=== PATIENT | female | born 1975 | race Caucasian/White ===

== ENCOUNTER 2020-01-15 07:40 | Observation (INO) | payer MEDICARE, MEDICAID ==
--- NOTE | 2020-01-10 11:07 | RADIOLOGY REPORT (SQ) ---
EXAM DESCRIPTION: CHEST PA/LATERAL IMAGES COMPLETED DATE/TIME: 01/10/2020 10:22 am REASON FOR STUDY: PRE-OP COMPARISON: None. EXAM PARAMETERS: NUMBER OF VIEWS: two views TECHNIQUE: Digital Frontal and Lateral radiographic views of the chest acquired. RADIATION DOSE: NA LIMITATIONS: none FINDINGS: LUNGS AND PLEURA: Mild chronic interstitial changes. No acute infiltrate or effusion. No mass. MEDIASTINUM AND HILAR STRUCTURES: No masses or contour abnormalities. HEART AND VASCULAR STRUCTURES: Heart normal size. No evidence for failure. BONES: No acute findings. HARDWARE: None in the chest. OTHER: No other significant finding. IMPRESSION: Very mild chronic lung changes with no acute cardiopulmonary findings. TECHNICAL DOCUMENTATION: JOB ID: [id number] 2010 [employer]- All Rights Reserved Reading location - IP/workstation name: [email or web address]
[2020-01-10 11:40] LABS: ABSOLUTE EOSINOPHILS # (AUTO) 0.1 10^3/uL (0.0-0.6); ABSOLUTE LYMPHOCYTES (AUTO) 1.9 10^3/uL (0.5-4.7); ABSOLUTE MONOCYTES (AUTO) 0.3 10^3/uL (0.1-1.4); ABSOLUTE NEUT (AUTO) 2.8 10^3/uL (1.7-8.2); BASOPHILS % (AUTO) 0.5 % (0-2); EOSINOPHILS % (AUTO) 2.5 % (0-6); HEMATOCRIT 43.4 % (36.0-47.0); HEMOGLOBIN 15.3 g/dL (12.0-15.5); LYMPHOCYTES % (AUTO) 36.3 % (13-45); MEAN CORPUSCULAR HGB CONC 35.2 g/dL (32.0-36.0); MEAN CORPUSCULAR VOLUME 91 fl (80-97); MONOCYTES % (AUTO) 6.3 % (3-13); PLATELET COUNT 171 10^3/uL (150-450); RED BLOOD COUNT 4.77 10^6/uL (3.72-5.28); RED CELL DISTRIBUTION WIDTH 13.2 % (11.5-14.0); SEGMENTED NEUTROPHILS % (AUTO) 54.4 % (42-78); TOTAL CELLS COUNTED % (AUTO) 100 %; WHITE BLOOD COUNT 5.2 10^3/uL (4.0-10.5)
[2020-01-10 12:05] LABS: ANION GAP 6 (5-19); BLOOD UREA NITROGEN 12 mg/dL (7-20); CALCIUM 9.2 mg/dL (8.4-10.2); CARBON DIOXIDE 31 mmol/L (22-30); CHLORIDE 103 mmol/L (98-107); POTASSIUM 4.9 mmol/L (3.6-5.0)
[2020-01-10 12:10] LABS: GLUCOSE 51 mg/dL (75-110)
[~2020-01-15 07:40] MED LIST: CEFAZOLIN 1 GM/D5W RTU 1 GM/50 ML RTUPB IV ONE; CEFAZOLIN 1 GM/D5W RTU 1 GM/50 ML RTUPB IV PRN; FENTANYL CITRATE INJ/PF 100 MCG/2 ML AMPUL ONE; KETAMINE HCL INJ 500 MG/10 ML VIAL ONE; LACTATED RINGERS 1000 ML IV PRN; LIDOCAINE 0.5% INJ-PF (5 MG/ML) 50 ML SDV ONE; LIDOCAINE 0.5% INJ-PF (5 MG/ML) 50 ML SDV SUBCUT PRN; MIDAZOLAM 2 MG/2 ML INJ ONE; ONDANSETRON HCL INJ/PF 4 MG/2 ML SDV ONE; PROPOFOL INJ 200 MG/20 ML VIAL IV ONE
[2020-01-15 08:13] LABS: INTERNATIONAL RATION (INR) 0.97; PROTHROMBIN TIME 13.1 SEC (11.4-15.4)
[2020-01-15 08:14] LABS: PARTIAL THROMBOPLASTIN TIME 31.6 SEC (23.5-35.8)
[2020-01-15] MEDS ORDERED: SODIUM BICARBONATE 4.2% INJ (2.5 MEQ/5 ML) VIAL ONE (08:52)
[2020-01-15] MEDS ORDERED: LIDOCAINE 1% INJ-PF (10 MG/ML) 30 ML SDV ONE (08:52)
[2020-01-15] MEDS ORDERED: BUPIVACAINE HCL 0.25% /EPINEPHRINE INJ/PF 30 ML SDV ONE (08:52)
[2020-01-15] MEDS ORDERED: SCOPOLAMINE HYDROBROMIDE 1.5 MG PATCH.TD72 ONE (09:18)
[2020-01-15] MEDS ORDERED: PROMETHAZINE HCL INJ 25 MG/1 ML VIAL IV PRN ×2 (09:37)
[2020-01-15] MEDS ORDERED: MORPHINE SULFATE 10 MG/ML INJ IV PRN (09:37)
[2020-01-15] MEDS ORDERED: DIPHENHYDRAMINE HCL 50 MG/ML VIAL IV PRN (09:37)
[2020-01-15] MEDS ORDERED: ONDANSETRON HCL INJ/PF 4 MG/2 ML SDV IV PRN ×2 (09:37→12:12)
[2020-01-15] MEDS ORDERED: FENTANYL CITRATE INJ/PF 100 MCG/2 ML AMPUL IV PRN ×3 (09:37)
[2020-01-15] MEDS ORDERED: MEPERIDINE HCL/PF INJ 25 MG/1 ML DISP.SYRIN IV PRN (09:37)
[2020-01-15] MEDS: MORPHINE SULFATE 10 MG/ML INJ ONE ×4 (11:30→12:00)
[2020-01-15] MEDS: PROMETHAZINE HCL INJ 25 MG/1 ML VIAL ONE ×2 (11:40→11:55)
--- NOTE | 2020-01-15 11:52 | Operative Report ---
Operative Report DATE OF SURGERY: 01/15/20 PREOPERATIVE DIAGNOSIS: End of life of intrathecal pump battery POSTOPERATIVE DIAGNOSIS: Same OPERATION: 1. Replacement of intrathecal pump and reservoir 2. revision of intrathecal pump pocket SURGEON: ARISTIDES JACKSON TISSUE REMOVED OR ALTERED: Existing intrathecal pump COMPLICATIONS: None ESTIMATED BLOOD LOSS: 15mL INTRAOPERATIVE FINDINGS: Existing IT pump removed and discarded. PROCEDURE: Procedure Detail: After obtaining informed consent and advising the patient of the risks and benefits, including serious neurological injury, bleeding and infection, allergic reaction and , the patient was taken to the operating room. The patient was placed comfortably in the supine position with a bump under the right hip. Comfort was assessed visually and verbally. The patient was then prepped with chlorhexidine with a suitable drying time prior to draping. The sterile field was draped with an [place] drape. The existing intrathecal pump was readily palpable and site marked. The previous incisional scar was avoided due to thinning of the tissue overlying the pump. A new incisional scar overlying the pump was marked down to the previous site. The planned incision site was anesthetized with 1% lidocaine with bicarbonate, followed by bupivacaine 0.25% with epinephrine. Sharp and blunt dissection were performed down to the intrathecal pump taking care to avoid the intrathecal catheter. The pump was readily identified. Electrocautery was minimally necessary for hemostasis. The existing pump was removed easily. Notably there was a mesh pocket in situ with portion still remaining. Additional portions were excised and discarded. The pump was disconnected from the intrathecal catheter and moved to the back table. The medication in the pump was aspirated from the existing pump. A total of 17 mL of hydromorphone solution was removed from the existing pump. The new pump was prepared by removing the saline and the pump. Subsequently using a noncoring needle the new pump was filled with the 17 mL of hydromorphone solution. Meanwhile the intrathecal catheter was aspirated with a tuberculin syringe and CSF flowed easily back through the catheter. A total of 0.4 mL was removed which superseded the volume in the catheter. At this juncture the catheter was attached to the new pump. 2 stay sutures were placed in the pocket using 0 Mersilene and these were tied to the pump. The pocket was then copiously irrigated using a dilute Betadine solution. The pocket was closed using a 3-0 Vicryl in interrupted fashion and the skin closed using juan diego. The pump was programmed in the operating room for a bridge bolus and resumption of previous rate. The region was cleansed and a suitable tegaderm sponge dressing was placed. The patient was then taken back to PACU for postoperative care and monitoring. Patient will be monitored overnight given a history of DVT and pulmonary embolus following surgery. We will resume her home dose of Eliquis tomorrow morning.
[2020-01-15] MEDS ORDERED: CEFAZOLIN INJ 1 GM VIAL ONE (12:04)
[2020-01-15] MEDS ORDERED: HYDROMORPHONE HCL 2 MG TABLET ONE (12:54)
[2020-01-15] MEDS: HYDROMORPHONE HCL 2 MG TABLET PO PRN ×2 (18:15→22:20)
[2020-01-15] MEDS ORDERED: TIZANIDINE HCL 4 MG TABLET PO PRN (18:48)
[2020-01-15] MEDS ORDERED: (PENDING PHARMACY ID) (Hydromorphone Hcl [Dilaudid] 8 MG) PO PRN (18:48)
[2020-01-15] MEDS ORDERED: PROMETHAZINE HCL 25 MG TABLET PO PRN (18:48)
[2020-01-15] MEDS ORDERED: ALBUTEROL SULFATE HFA (90 MCG/PUFF) 8 GM MDI (1 MDI/ER DISP) IH PRN (18:48)
[2020-01-15] MEDS ORDERED: TRAZODONE HCL 50 MG TABLET PO SCH (22:00)
[2020-01-15] MEDS ORDERED: PRAMIPEXOLE DI-HCL 0.5 MG TABLET PO SCH (22:00)
[2020-01-15] MEDS ORDERED: CHOLECALCIFEROL (D3) 1,000 UNIT (25 MCG) TABLET PO SCH (22:00)
[2020-01-16] MEDS: HYDROMORPHONE HCL 2 MG TABLET PO PRN ×2 (03:29→08:15)
[2020-01-16] MEDS ORDERED: LEVOTHYROXINE SODIUM 0.075 MG TABLET PO SCH (06:00)
[2020-01-16] MEDS ORDERED: INFLUENZA QUAD (6MOS+) 2020-21 VAC 0.5 ML SYR IM ONE (08:00)
[2020-01-16 08:26] VITALS: BP 123/90
[2020-01-16] MEDS ORDERED: NALDEMEDINE TOSYLATE 0.2 MG PO SCH (10:00)
[2020-01-16] MEDS ORDERED: FLUTICASONE/VILANTEROL 100-25 MCG/DOSE IH SCH (10:00)
[2020-01-16] MEDS ORDERED: MOMETASONE IH SCH (10:00)
[2020-01-16] MEDS ORDERED: (PENDING PHARMACY ID) (Omeprazole Magnesium [Prilosec Otc] 40 MG) PO SCH (10:00)
[2020-01-16] MEDS ORDERED: MELOXICAM 7.5 MG TABLET PO SCH (10:00)
[2020-01-16] MEDS ORDERED: GABAPENTIN 300 MG CAPSULE PO SCH (10:00)
[2020-01-16] MEDS ORDERED: FORMOTEROL IH SCH (10:00)
[2020-01-16] MEDS ORDERED: PANTOPRAZOLE SODIUM 40 MG TABLET.DR PO SCH (10:00)
[2020-01-16] MEDS ORDERED: APIXABAN 5 MG TABLET PO SCH (10:00)
[2020-01-16] MEDS ORDERED: ASPIRIN 81 MG TABLET, ENT COATED PO SCH (22:00)
== END 2020-01-16 09:39 | disposition home or self-care (01) ==
LOC: OROUT 07:40 → 4S 15:21
PROVIDERS: ADMIT Pain Medicine Interventional Pain Medicine; ATTEND Pain Medicine Interventional Pain Medicine
DX: M96.1 Postlaminectomy syndrome, not elsewhere classified (principal); G89.4 Chronic pain syndrome; D68.2 Hereditary deficiency of other clotting factors; M54.17 Radiculopathy, lumbosacral region; Z23 Encounter for immunization; Z03.818 Encounter for observation for suspected exposure to other biological agents ruled out; F17.210 Nicotine dependence, cigarettes, uncomplicated; E07.9 Disorder of thyroid, unspecified; Z86.711 Personal history of pulmonary embolism; Z79.899 Other long term (current) drug therapy; Z79.01 Long term (current) use of anticoagulants; Z79.1 Long term (current) use of non-steroidal anti-inflammatories (NSAID); Z79.891 Long term (current) use of opiate analgesic; Z86.718 Personal history of other venous thrombosis and embolism; Z86.73 Personal history of transient ischemic attack (TIA), and cerebral infarction without residual deficits; Z79.890 Hormone replacement therapy
CPT/HCPCS: 36415; 82962; 85025; 85610; 85730; 80048; 71046; 90686; 94762 ×2; 00300; 62350; 62362; G0378 ×2; G0008; C1772; U0003; J2250; J3490 ×6; J0690 ×2; A9270 ×11; J3010; J2270; J2550; J2405; J2704; C9803; 300; 87635; 90471